=== PATIENT | female | born 1970 | race Two or more races ===

== ENCOUNTER 2020-04-26 15:30 | Emergency (ER) | payer MEDICAID ==
[~2020-04-26] VITALS: Ht 160 cm; Wt 71.7 kg
[~2020-04-26 15:30] MED LIST: ASPI325T4 PO; CLON1TAB10 PO; GABA300C10 PO; LEVE500T32 PO; LORA-35 PO; MEC25T PO; NIFE20CA PO; NOR10T PO
[2020-04-26 15:34] VITALS: BP 145/92
== END 2020-04-26 16:31 | disposition home or self-care (01) ==
LOC: ER 15:30
DX: J44.9 Chronic obstructive pulmonary disease, unspecified (principal); E11.9 Type 2 diabetes mellitus without complications; K21.9 Gastro-esophageal reflux disease without esophagitis; Z86.73 Personal history of transient ischemic attack (TIA), and cerebral infarction without residual deficits; Z98.51 Tubal ligation status
CPT/HCPCS: 71045

== ENCOUNTER 2020-06-02 15:09 | Emergency (ER) | payer MEDICAID ==
[~2020-06-02] VITALS: Ht 160 cm; Wt 77.1 kg
[~2020-06-02 15:09] MED LIST changes: +CLON-853 PO; -CLON1TAB10 PO
[2020-06-02 15:11] VITALS: BP 132/75
== END 2020-06-02 17:38 | disposition home or self-care (01) ==
LOC: ER 15:09
DX: S09.8XXA Other specified injuries of head, initial encounter (principal); J45.909 Unspecified asthma, uncomplicated; K21.9 Gastro-esophageal reflux disease without esophagitis; E11.9 Type 2 diabetes mellitus without complications; Z98.51 Tubal ligation status; Z86.73 Personal history of transient ischemic attack (TIA), and cerebral infarction without residual deficits; Z88.6 Allergy status to analgesic agent; Z88.8 Allergy status to other drugs, medicaments and biological substances; W22.8XXA Striking against or struck by other objects, initial encounter; Y93.89 Activity, other specified; Y92.89 Other specified places as the place of occurrence of the external cause; Y99.8 Other external cause status
CPT/HCPCS: 70486

== ENCOUNTER 2024-12-26 17:01 | Emergency (ER) | payer MEDICAID ==
[~2024-12-26] VITALS: Ht 160 cm; Wt 76.0 kg
[~2024-12-26 17:01] MED LIST changes: -ASPI325T4 PO; +ASPI325T6 PO; +GABA-1250 PO; -GABA300C10 PO; -LEVE500T32 PO; +LEVE500T40 PO; -NIFE20CA PO; +NIFE20CA13 PO
[2024-12-26 17:02] VITALS: BP 163/100; RESP 18; TEMP 97.3; O2SAT 98
[2024-12-26 17:11] VITALS: PULSE 69
--- NOTE | 2024-12-26 18:27 | ECG ---
[facility] Test Date: 2024-12-26 Test Time: 17:11:04 Pat Name: DANILO PALMER Department: ED Room: Gender: [employer]: ER : 1970 Requested By: KERON PRINCE Order Number: [id number] Reading MD: Measurements Intervals [place] Rate: 69 P: 33 WV: 131 QRS: -19 QRSD: 103 T: 14 QT: 405 QTc: 434 Interpretive Statements Sinus rhythm Borderline left axis deviation Low voltage, precordial leads Probable anteroseptal infarct, old Please click the below link to view image of tracing.
== END 2024-12-26 20:27 | disposition left against medical advice (07) ==
LOC: ER 17:04
DX: I10 Essential (primary) hypertension (principal); Z53.21 Procedure and treatment not carried out due to patient leaving prior to being seen by health care provider
CPT/HCPCS: 93005